=== PATIENT | female | born 1955 | race Caucasian/White ===

== ENCOUNTER 2024-12-01 00:49 | Emergency (ER) | payer OTHER, SELFPAY ==
[2024-12-01] VITALS (7 sets, daily range): BP systolic 122–155; BP diastolic 76–93; BMI 31.3
--- NOTE | 2024-12-01 02:01 | ED.GENMED ---
History of Present Illness
General
Chief Complaint: Breathing Problem
Source: patient
Exam Limitations: none
Time Seen by Provider: 12/01/24 01:21
Nursing documentation reviewed up to this point in time: agreed with
History of Present Illness
History of Present Illness:
Patient presents to ED secondary to 3-week history of persistent cough, shortness of breath, and increased phlegm production. Patient was seen at urgent care center at onset of her symptoms, where she was prescribed a Z-Gerald, without improving
symptoms. Patient has been utilizing her nebulizer at home, with minimal relief. Denies chest pain. Denies fever or chills. Denies nausea, vomiting, or diarrhea. Denies loss of appetite. Denies sick contact. Denies leg pain or swelling.
Denies back pain.
Past History
Past History
ED Past Medical History: Asthma and Hypothyroidism
ED Past Surgical History: Other (Left breast lumpectomy)
Social History
Tobacco: Non-smoker
Alcohol: None
Drug: None
Review of Systems
Review of Systems
Allergies reviewed?: Yes
All Other Systems: ROS reviewed and negative except as documented in HPI and ROS
Constitutional: Reports no symptoms; Denies fever
EENT: Reports no symptoms
Respiratory: Reports cough and trouble breathing
Cardiac: Reports no symptoms
ABD/GI: Reports no symptoms; Denies vomiting or diarrhea
Musculoskeletal: Reports no symptoms
Skin: Reports no symptoms
Neurological: Reports no symptoms
Phy Exam
Physical Exam
Physical Exam:
Physical Exam
General: mild respiratory distress, not acutely ill. afebrile
Head: nc/t. eomi
Neck: supple. no meningeal signs. normal posterior pharynx
Heart: s1/s2 regular rate and rhythm, no murmur. equal radial pulses.
Lungs: mild respiratory distress. diffuse expiratory wheezing bilaterally
Abdomen: normal bowel sounds. not tender.
Neuro: alert and oriented. no focal neurological deficits
Skin: no rash
Psychiatric: well kept. interactive and cooperative
Extremities: no edema. no calf tenderness.
Scores
Heart Failure Risk
Heart Failure Risk Score: Not Applicable
Course
Orders/Labs/Results
Orders:
Orders
12/01/24 01:50
Guaifenesin/Codeine Solution [Robitussin AC] 10 ml PO NOW STA
Ipratropium/Albuterol Sulfate [Duoneb] 3 ml INH R NOW STA
Prednisone [Deltasone] 50 mg PO NOW STA
CR Chest - 2 Views Urgent
Comment:
Reason For Exam: cough/sob
12/01/24 02:32
Basic Metabolic Panel Urgent
Complete Blood Count/With Diff Urgent
Magnesium Urgent
12/01/24 04:23
Ipratropium/Albuterol Sulfate [Duoneb] 3 ml INH R NOW STA
Abnormal Lab Results
12/01/24
02:32
MCH 32.2 H pg
(27.0-31.0)
Eosinophils % 12.6 H %
(0-6)
Glucose 150 H mg/dl
(70-99)
12/01/24 02:32
12/01/24 02:32
Vital Signs
Initial and Last Documented VS:
Initial Vital Signs
Temp Pulse Resp BP Pulse Ox
98.3 F 92 20 134/93 95
12/01/24 01:04 12/01/24 01:04 12/01/24 01:04 12/01/24 01:04 12/01/24 01:04
Last Documented Vital Signs
Temp Pulse Resp BP Pulse Ox
98.3 F 77 14 155/78 97
12/01/24 01:04 12/01/24 05:31 12/01/24 05:31 12/01/24 05:31 12/01/24 05:31
MDM/Problems Addressed
MDM/Problems Addressed:
Patient reports improvement in symptoms after treatment. Otherwise, patient remains afebrile, hemodynamically stable, without acute respiratory distress.
History and exam consistent with likely seasonal allergies triggering asthma exacerbation versus viral illness versus bronchitis.
Chest x-ray without acute findings.
Discussed treatment options with patient, including potential admission for further evaluation and treatment. However at this time, patient feels comfortable going home. As such, patient will be discharged home with course of prednisone, along
with recommendation to follow-up with PCP for reevaluation.
As patient is currently in the midst of changing her primary care physician, patient provided with information for [facility] clinic.
*Critical Care Note
Total Time (30-74mins, 75-104mins- exclusive of procedures): Not Applicable
ED Attending Note
-
Portions of this chart may have been created with voice recognition software.� Occasional wrong word or��sound alike� substitutions may have occurred due to the inherent limitations of voice recognition software.
Discharge Plan
Departure
Patient Disposition: Home (Routine Discharge)
Date of Disposition: 12/01/24
Time of Disposition: 04:27
Patient with high blood pressure during this ER visit?: Yes
Condition: Fair
Discharge Problem:
Asthma exacerbation, Bronchitis
Instructions: Asthma, Adult (DC), Acute Bronchitis, Adult (DC)
Prescriptions:
New
prednisone 50 mg tablet
50 mg PO DAILY Qty: 3 0RF
benzonatate 100 mg capsule
100 mg PO TID PRN (Reason: Cough) Qty: 14 0RF
No Action
albuterol sulfate [AccuNeb] 0.63 MG/3 ML solution for nebulization
1 dose continuous nebulization TID PRN (Reason: SOB)
levothyroxine [Synthroid] 75 MCG tablet
75 mcg PO DAILY
royal jelly-bee pollen 1 TAB.CHEW tablet,chewable
1 tab.chew PO DAILY
cholecalciferol (vitamin D3) [Vitamin D3] 1,000 UNIT tablet
1,000 unit PO DAILY
budesonide-formoterol [Symbicort] 1 PUFF HFA aerosol inhaler
2 puff inhalation DAILY
Patient Comments:
hasnt taken due to not feeling well
Bee Profilus
1 tab DAILY
Patient Comments:
unknown dose
acetaminophen-codeine 1 TABLET tablet
1 tab PO Q4HPRN PRN (Reason: Moderate - severe PAIN) Qty: 20 0RF
Referrals:
[facility] [Outside]
UNKNOWN - PT DOES,NOT KNOW [Family Provider] -
Activity Restrictions/Additional Instructions:
As discussed, please follow-up with your primary care physician or referred family practice medical clinic for reevaluation. Your prescriptions have been sent electronically to [facility] pharmacy in [place]
Interventions
Interventions:
*Risk Screen - Suicide Last Done: 12/01/24 01:04
*General Assessment Last Done: 12/01/24 01:25
*Neglect/Abuse Screening Last Done: 12/01/24 01:25
*ED- Fall Risk Assessment Last Done: 12/01/24 01:25
*ED COVID-19 Vaccine History Last Done: 12/01/24 01:25
*Nursing Disposition Last Done: 12/01/24 05:40
ED- Cardiac Assessment Last Done: 12/01/24 01:25
ED- Pulmonary Assessment Last Done: 12/01/24 01:25
Discharge Date and Time
Discharge Date/Time: 12/01/24 05:40
Print Language: [id number]
[2024-12-01] MEDS: DELTASONE 50 MG PO (02:19)
[2024-12-01] MEDS: ROBITUSSIN AC 10 ML PO (02:19)
[2024-12-01] MEDS: DUONEB 3 ML INH ×2 (02:19→04:30)
[2024-12-01 03:01] LABS: % Eosinophils 12.6 % (0-6); % Immature Granulocytes 0.2 % (0-0.5); % Monocytes 5.9 % (1.7-9.3); % Neutrophils 53.3 % (42.2-75.2); Absolute Basophils 0.1 10^3/uL (0-0.2); Absolute Eosinophils 0.7 10^3/uL (0-0.7); Absolute Lymphocytes 1.4 10^3/uL (1.2-3.4); Absolute Monocytes 0.3 10^3/uL (0.1-0.6); Absolute Neutrophils 2.8 10^3/uL (1.4-6.5); Hematocrit 39.6 % (37.0-47.0); Hemoglobin 14.1 g/dL (12.0-16.0); Mean Corp Hgb Conc. 35.6 g/dL (33.0-37.0); Mean Corpuscular Hgb 32.2 pg (27.0-31.0); Mean Corpuscular Volume 90.4 fL (81.0-99.0); Mean Platelet Volume 8.5 fL (7.4-10.4); Nucleated Red Blood Cells % 0 %; Platelet Count 157 10^3/uL (130-400); Red Blood Cell Count 4.38 10^6/uL (4.20-5.40); Red Cell Dist. Width 13.2 % (11.5-14.5); White Blood Cell Count 5.2 10^3/uL (4.8-10.8)
[2024-12-01 03:23] LABS: Blood Urea Nitrogen 15 mg/dl (7-17); Calcium 9.2 mg/dl (8.4-10.2); Carbon Dioxide 23 mmol/L (22-30); Chloride 107 mmol/L (98-107); Estimated Creatinine Clearance 76 ml/min; Glucose 150 mg/dl (70-99); Magnesium 2.1 mg/dl (1.6-2.3); Sodium 142 mmol/L (135-145); eGFR > 60.00
== END 2024-12-01 05:40 | disposition home or self-care (01) ==
LOC: EMR 00:49
PROVIDERS: EMERGENCY PHYSICIAN Emergency Medicine
DX: J45.901 Unspecified asthma with (acute) exacerbation (principal); J40 Bronchitis, not specified as acute or chronic; E03.9 Hypothyroidism, unspecified
CPT/HCPCS: 94640; 99284; 71046; 80048; 83735; 85025